=== PATIENT | male | born 1995 | race Caucasian/White ===

== ENCOUNTER → 2017-03-29 | Day surgery (SDC) | payer OTHER ==
[~2017-03-29] VITALS: Ht 188 cm; Wt 104.3 kg
--- NOTE | 2017-03-29 12:36 | Operative Report ---
Operative/Inv Procedure Report Surgery Date: 03/29/17 Name of Procedure: excision pilonidal cyst Pre-Operative Diagnosis: pilonidal cyst Post-Operative Diagnosis: same Estimated Blood Loss: scant Surgeon/Supervisor Public Message Service: OKSANA PEREIRA MD Anesthesia: local monitored anesthesi Operative/Procedure Note Note: After consent is brought to the operating room and laid prone. Lower back in blocks were then prepped and draped. There were innumerable pilonidal cyst in the midline. Ellipse of skin was marked and then infiltrated local anesthesia around the area. Incision was made sharply and subcutaneous tissues dissected with cautery. There was a underlying extensive cyst. It did not tract either side to any significant degree. It was dissected free and passed off the field. The wound was irrigated with saline and hemostasis achieved cautery. The incision was closed primarily with interrupted 4-0 nylon sutures in a mattress fashion. Inferior portion was left open for packing through which half inch Nu Gauze was placed. Some bacitracin ointment was applied and a sterile dressing applied. Sponge and needle counts are correct. CC: JENELLE LEAVITT,EMELIA Kendall
== END ==
LOC: STS 02:56
DX: L05.91 Pilonidal cyst without abscess (principal)
CPT/HCPCS: 88304; J0131; J0690; J2250